=== PATIENT | female | born 1960 | race African-American/Black ===

== ENCOUNTER → 2016-12-15 | Outpatient (CLI) | payer MEDICARE, BC ==
[~2016-12-15] MED LIST: AMOXICILLIN; BACTRIM DS TABL1 TAB; CLEOCIN; COMBIVIR TABLET1 TAB; COUMADIN; DIFLUCAN; FERROUS SULFATE; FLEXERIL; PRILOSEC; SUSTIVA; VICODIN 5/500 T1 TAB; ZITHROMAX; ZYVOX
--- NOTE | ~2016-12-15 | CR97 ---
[facility] A Service of [facility] RADIOLOGY TEXT RESULTS PATIENT: DELMARSHARON MARISSA LOCATION: [facility] : 64 UNIT #: [id number] AGE: [address]: Fabiano Acosta MD SEX: F ORDER DR: [id number] [facility] [address] [place], [place] [address] [id number] O MR#: [id number] Acc #: [id number] NAME: DELMAR SHARON : 1960 SEX: F STUDY DATE/TIME: 12/15/2016 12:09 UNIT: [facility] ROOM: STUDY DESCRIPTION: CR Esophagram Attending Physician: Fabiano Acosta M.D. Referring Physician: Fabiano Acosta M.D. Ordering Physician: Fabiano Acosta M.D. Primary Care Physician: Primary Care Physician No MEDICAL IMAGING REPORT This report is preliminary unless electronic signature is present EXAM Fluoroscopic esophagram COMPARISON Esophagram dated October 05, 2009. INDICATIONS 56-year-old female with progressive weight gain despite gastric lap band adjustment. Evaluate for lap band slippage. FINDINGS Total fluoro time was 1.7 minutes. A total of 16 images were obtained. Environmental Coordinator AP image demonstrates stable configuration of the gastric lap band device. Cholecystectomy clips are noted. The patient ingested thick barium in the upright left posterior oblique position, while imaging of the esophagus was performed at 2 frames per second. There is a very small diverticulum in the superior esophagus just above the thoracic inlet, possibly representing a very small Zenker's diverticulum. There are mild tertiary contractions seen throughout the esophagus. There is normal appearance of the cricopharyngeus. There is no evidence of hiatal hernia. Patient was also placed supine and Valsalva maneuvers were performed, which did not produce reflux or a hiatal hernia. Contrast passes easily through the lumen of the stomach at the level of the gastric lap band. There is subjectively normal gastric emptying. IMPRESSION 1. Stable position of gastric lap band device as compared to 2009. No evidence of lap band complication. 2. Mild diffuse tertiary contractions of the esophagus. 3. Tiny diverticulum of the superior posterior esophagus or possibly of the hypopharynx, either representing a very small Zenker's diverticulum or a small superior esophageal diverticulum. This may be clinically insignificant. [facility] A Service of [facility] RADIOLOGY TEXT RESULTS PATIENT: DELMAR MARISSA LOCATION: [facility] : 64 UNIT #: [id number] AGE: [address]: Fabiano Acosta MD SEX: F ORDER DR: Dictated by... John Lisa M.D. THIS IS AN ELECTRONICALLY VERIFIED REPORT John Lisa M.D. at 12/20/2016 11:45 AM JUAN ANTONIO/elayne TD: 12/15/2016 23:41 JOB #: [id number] MEDICAL IMAGING REPORT Page 1 of 1 COPY
== END | disposition home or self-care (01) ==
LOC: CRAD 10:27
DX: R13.10 Dysphagia, unspecified (principal); K22.8 Other specified diseases of esophagus; Z98.84 Bariatric surgery status
CPT/HCPCS: 74220

== ENCOUNTER → 2017-01-04 | Outpatient (CLI) | payer SELFPAY | END | disposition home or self-care (01) | LOC: CBAR 09:39 | DX: E66.01 Morbid (severe) obesity due to excess calories (principal) | CPT/HCPCS: 76000 ==